=== PATIENT | male | born 2000 | race Caucasian/White ===

== ENCOUNTER 2021-04-13 11:49 | Emergency (ER) | payer OTHER ==
[2021-04-13 11:52] VITALS: BP 128/72; PULSE 72; TEMP 97.9; BMI 29.0
[2021-04-13] MEDS ORDERED: KETOROLAC TROMETHAMINE 30 MG/1 ML VIAL IM ONE (12:23)
[2021-04-13] MEDS ORDERED: KETOROLAC TROMETHAMINE 30 MG/1 ML VIAL ONE (12:31)
== END 2021-04-13 13:39 | disposition home or self-care (01) ==
LOC: JERFT 11:49
PROC: 3E0233Z Introduction of Anti-inflammatory into Muscle, Percutaneous Approach (ICD-10-PCS; principal; 2021-04-13)
DX: M54.5 Low back pain (principal)
CPT/HCPCS: 99284-25